=== PATIENT | female | born 1990 | race Caucasian/White ===

== ENCOUNTER 2022-03-28 13:05 | Outpatient (REF) | payer MEDICARE, MEDICAID, SELFPAY ==
--- NOTE | 2022-03-28 13:24 | ECG_ITS ---
Test Reason : R/O CONDUCTION DELAY Blood Pressure : / mmHG Vent. Rate : 083 BPM Atrial Rate : 083 BPM P-R Int : 136 ms QRS Dur : 080 ms QT Int : 348 ms P-R-T Axes : 075 050 035 degrees QTc Int : 408 ms Normal sinus rhythm Normal ECG No previous ECGs available Referred By: Eduard Norris Electronically Signed By:NEVILLE MANNING
[2022-03-28 13:51] LABS: Estimated Average Glucose 100 mg/dL; Hemoglobin A1C 120.4969 umol/L; Hemoglobin A1c % 5.1 %
[2022-03-28 14:05] LABS: Cholesterol 156 mg/dL; HDL Cholesterol 35 mg/dL; LDL Cholesterol Calculated 105 mg/dl; Triglycerides 81 mg/dL
== END 2022-03-28 13:06 | disposition home or self-care (01) ==
LOC: HO.LAB 13:05
PROVIDERS: Psychiatry & Neurology Psychiatry; PCP Internal Medicine; Visit Provider Physical Medicine & Rehabilitation
DX: Z79.899 Other long term (current) drug therapy (principal)
CPT/HCPCS: 36415; 80061; 83036; 93005

== ENCOUNTER 2023-04-19 11:17 | Outpatient (REF) | payer MEDICARE, MEDICAID, SELFPAY ==
[2023-04-19 12:54] LABS: Valproate 67.3 mcg/mL (50.0-100.0)
== END 2023-04-19 11:18 | disposition home or self-care (01) ==
LOC: HO.LAB 11:17
PROVIDERS: Visit Provider Psychiatry & Neurology Psychiatry
DX: Z79.899 Other long term (current) drug therapy (principal)
CPT/HCPCS: 36415; 80164